=== PATIENT | male | born 1945 | race Hispanic/Latino ===

== ENCOUNTER 2018-05-07 06:27 | Observation (INO) | payer MEDICARE ==
[2018-04-30 10:01] LABS: BASOPHILS % 0.4 % (0.0-1.0); EOSINOPHILS # (AUTO) 0.1 (0.0-0.4); EOSINOPHILS % 1.8 % (0.0-6.0); LYMPHOCYTES % 29.2 % (18.0-39.1); MEAN CORPUSCULAR HEMOGLOBIN 31.3 pg (28-32); MEAN CORPUSCULAR HGB CONC 33.3 g/dL (31-35); MONOCYTES # (AUTO) 0.6 (0.2-0.8); MONOCYTES % 8.5 % (4.4-11.3); NEUTROPHILS # (AUTO) 3.9 (2.1-6.9); NEUTROPHILS % 58.9 % (38.7-80.0); PLATELET COUNT 152 x10e3/uL (140-360); RED BLOOD COUNT 4.15 x10e6/uL (4.3-5.7); RED CELL DISTRIBUTION WIDTH 13.2 % (11.7-14.4)
[2018-04-30 10:12] LABS: ANION GAP 14.3 mmol/L (8-16); BLOOD UREA NITROGEN 15 mg/dL (7-26); BUN/CREATININE RATIO 14 (6-25); CALCIUM 9.5 mg/dL (8.4-10.2); CARBON DIOXIDE 24 mmol/L (22-29); CHLORIDE 107 mmol/L (98-107); CREATININE, SERUM 1.06 mg/dL (0.72-1.25); EST GLOMERULAR FILTRATION RATE > 60 ML/MIN (60-); GLUCOSE 105 mg/dL (74-118); POTASSIUM 4.3 mmol/L (3.5-5.1); SODIUM 141 mmol/L (136-145)
--- NOTE | 2018-05-04 08:44 | Diagnostic Imaging Report ---
PROCEDURE: X-RAY CHEST, TWO VIEWS COMPARISON: None. INDICATIONS: PRE-OP FINDINGS: LUNGS: No consolidations or edema. PLEURA: No effusions or pneumothorax. HEART & MEDIASTINUM: The heart is within normal size-limits. Sternotomy wire sutures and mediastinal clips are noted. BONES & SOFT TISSUES: No acute findings. Extensive degenerative spurring of the spine. Clips in the right upper quadrant of the abdomen. CONCLUSION: No acute thoracic abnormality. Khai Landeros D.O. Dictated by: Khai Landeros D.O. on 05/04/2018 at 8:53 Electronically approved by: Khai Landeros D.O. on 05/04/2018 at 8:53
[2018-05-07] VITALS (27 sets, daily range): BP systolic 84–101; BP diastolic 49–67
[~2018-05-07] VITALS: Ht 170.2 cm; Wt 79.4 kg
[~2018-05-07 06:27] MED LIST: FLOMAX0.4 MG PO; METOPROLOL SUCC25 MG PO; PLAVIX75 MG PO; SIMVASTATIN40 MG PO; ZESTRIL20 MG PO
--- OUTSIDE RECORDS SUMMARY | 2018-05-07 06:29 | XMS REPORT ---
Author Author [facility] Address Unknown Phone Unavailable Care Team Providers Care Analytics Director Name Role Phone Bharti ENGLE Unavailable Unavailable Payers Payer Name Policy Type Policy Number Effective Date Expiration Date Problems This patient has no known problems. Allergies, Adverse Reactions, Alerts Allergy Name Allergy Type Status Severity Reaction(s) Onset Date Inactive Date Treating Clinician Comments No Known Allergies DA Active U 2013-08-20 00:00:00 Medications This patient has no known medications. Results Test Description Test Time Test Comments Text Results Atomic Results Result Comments CHEST 2 VIEWS 2018-05-04 08:53:00 [place] [address] Patient Name: KRAIG WALKER MR #: [id number] : 1945 Age/Sex: 72/M Req #: [id number] Adm Physician: Ordered by: TAVON ENGLE MD Report #: [id number] Location: OR Room/Bed: Procedure: [id number] DX/CHEST 2 VIEWS Exam Date: Exam Time: REPORT STATUS: Signed PROCEDURE: X-RAY CHEST, TWO VIEWS COMPARISON: None. INDICATIONS: PRE-OP FINDINGS: LUNGS: No consolidations or edema. PLEURA: No effusions or pneumothorax. HEART MEDIASTINUM: The heart is within normal size-limits. Sternotomy wire sutures and mediastinal clips are noted. BONES SOFT TISSUES: No acute findings. Extensive degenerative spurring of the spine. Clips in the right upper quadrant of the abdomen. CONCLUSION: No acute thoracic abnormality. Jas Landeros D.O. Dictated by: Jas Landeros D.O. on 05/04/2018 at 8:53 Electronically approved by: Jas Landeros D.O. on 05/04/2018 at 8:53 Dictated By: JAS LANDEROS DO 2 Transcribed By: CIARRA on 05/04/18852 COPY TO: TAVON ENGLE MD
[2018-05-07] MEDS ORDERED: CEFTRIAXONE SOD 1 GM VIAL ONE (07:20)
[2018-05-07] MEDS ORDERED: IOPAMIDOL 610MG/1ML 300 MG/ML VIAL IV ONE (08:12)
[2018-05-07] MEDS ORDERED: ATROPINE SULFATE 0.1 MG/ML 10ML SYR ONE (09:48)
--- NOTE | 2018-05-07 12:06 | Operative Report ---
DATE OF PROCEDURE: May 07, 2018 PREOPERATIVE DIAGNOSIS: Bladder outlet obstruction with recent urinary retention. POSTOPERATIVE DIAGNOSIS: Bladder outlet obstruction with recent urinary retention. OPERATIVE PROCEDURES PERFORMED 1. Cystoscopy. 2. Transurethral resection of the prostate. ANESTHESIA: General anesthesia. ESTIMATED BLOOD LOSS: 100 mL. INDICATIONS: Mr. Cecil Nicole is a 72-year-old gentleman with recent history of urinary retention who now presents with bladder outlet obstructive type symptoms. He now presents for definitive surgical management of this problem. PROCEDURE IN DETAIL: The patient was brought into the operating room and placed in supine position. After administration of general anesthesia, he was placed in the dorsal lithotomy position, prepped and draped in the usual sterile fashion. Cystourethroscopy was performed using a 21-Faroese cystoscope. Anterior and posterior urethra was noted to be normal. The prostate was moderate size, and it was noted to have trilobar hyperplasia. Entrance into the bladder was mildly difficult. Upon entrance into the bladder, there were grade-3 trabeculations noted with cellules and diverticula noted throughout. The ureteral orifices were in normal anatomical position and produced clear efflux. There was a moderate elevation of the median bar. The bladder was left full, and the cystoscope and sheath were removed. A 24-Faroese resectoscope sheath was then placed in a retrograde fashion, and the [employer] resectoscope was used to perform the procedure. Beginning at the 1 o'clock position and proceeding in a clockwise fashion down to the 6 o'clock position, all the adenomatous tissue between the bladder neck and the veru was resected down to the level of the surgical capsule. The surgical capsule was penetrated but not perforated on that side. A similar procedure was performed on the contralateral side in a counterclockwise fashion beginning at the 11 o'clock position and ending at the 6 o'clock position. Again, all the adenomatous tissue between the bladder neck and the veru was resected down to the surgical capsule. There was no gross penetration or perforation of the capsule on this side. Once adequate hemostasis was secured, the [employer] evacuator was used to remove all chips. These were sent to pathology for microscopic analysis. The bladder was then left full, and the resectoscope and sheath were removed. The patient was noted to have a brisk urinary flow with Crede. A 24-Faroese, 3-way catheter was placed and the balloon inflated with 45 mL of sterile water. Urinary efflux on continuous bladder irrigation was blood-tinged. The catheter was placed to gravity drainage, and he was returned to a supine position. Anesthesia was reversed, and he was transferred to a bed and taken to the postanesthesia care unit in good condition. Of note, the needle and instrument count was correct at the conclusion of the case. Job#: [id number]
[2018-05-07 14:34] LABS: HEMATOCRIT 28.9 % (38.2-49.6); HEMOGLOBIN 9.5 g/dL (14.0-18.0)
[2018-05-07 14:53] LABS: INR 1.13; PROTHROMBIN TIME 15.5 seconds (11.9-14.5)
[2018-05-07 14:54] LABS: PARTIAL THROMBOPLASTIN TIME 35.6 seconds (23.8-35.5)
[2018-05-07] MEDS ORDERED: SODIUM CHLORIDE 0.9% 1000ML 1,000 ML ONE (15:41)
[2018-05-07] MEDS ORDERED: SODIUM CHLORIDE 0.9% 250ML 250 ML IV ONE (15:45)
--- NOTE | 2018-05-07 16:18 | Diagnostic Imaging Report ---
EXAM: Limited pelvic Ultrasound INDICATION: ^Bleeding COMPARISON: None TECHNIQUE: Transverse and longitudinal images of the pelvis and bladder were obtained. FINDINGS: Carreno catheter within a decompressed bladder. No fluid collections in the pelvis. No hyperechoic areas within the collapsed bladder. IMPRESSION: No compressive findings to suggest fluid collections or bleeding in the pelvis on limited evaluation. CT abdomen and pelvis, can be more sensitive for its evaluation. Signed by: Dr. Anabel Núñez M.D. on 05/07/2018 4:14 PM
[2018-05-07] MEDS ORDERED: FENTANYL CITRATE/PF 100MCG/2 ML INJ ONE (17:20)
[2018-05-07] MEDS ORDERED: MIDAZOLAM HCL 2 MG/2 ML VIAL ONE (17:20)
[2018-05-07] MEDS ORDERED: ACETAMINOPHEN/CODEINE 300MG - 30MG TAB PO PRN (17:30)
[2018-05-07] MEDS ORDERED: DEXTROSE 5%/0.9% SOD CHL 1,000 ML IV ONE (18:00)
[2018-05-07] MEDS ORDERED: LIDOCAINE HCL 2% LOCAL INJ 5 ML SDV VIAL INJ ONE (19:36)
[2018-05-07] MEDS ORDERED: SEVOFLURANE INHAL SOLN 250 ML PEN BTL ONE (19:36)
[2018-05-07] MEDS ORDERED: PHENYLEPHRINE HCL 1% 10 MG/ML VIAL ONE (19:36)
[2018-05-07] MEDS ORDERED: VASOPRESSIN INJ 20 UNIT/ML VIAL ONE (19:36)
[2018-05-07] MEDS ORDERED: DEXAMETHASONE SOD PHOS INJ 4 MG/ML VIAL ONE (19:36)
[2018-05-07] MEDS ORDERED: EPHEDRINE SULFATE INJ 50 MG/10 ML SYR ONE (19:36)
[2018-05-07] MEDS ORDERED: ONDANSETRON HCL INJ 2 MG/ML VIAL ONE (19:36)
[2018-05-07] MEDS ORDERED: PROPOFOL IV EMULSION 10 MG/ML 20 ML VIAL ONE (19:36)
[2018-05-07] MEDS: SIMVASTATIN 40 MG TAB PO SCH (20:24)
[2018-05-07] MEDS: TRIMETHOPRIM/SULFAMETHOXAZOLE 160-800 MG TAB PO SCH (20:24)
[2018-05-08] VITALS (73 sets, daily range): BP systolic 61–119; BP diastolic 42–111
[2018-05-08 04:45] LABS: HEMATOCRIT 25.2 % (38.2-49.6); HEMOGLOBIN 8.7 g/dL (14.0-18.0)
[2018-05-08 04:59] LABS: ANION GAP 10.6 mmol/L (8-16); BLOOD UREA NITROGEN 21 mg/dL (7-26); BUN/CREATININE RATIO 23 (6-25); CARBON DIOXIDE 23 mmol/L (22-29); CHLORIDE 105 mmol/L (98-107); CREATININE, SERUM 0.93 mg/dL (0.72-1.25); EST GLOMERULAR FILTRATION RATE > 60 ML/MIN (60-); GLUCOSE 132 mg/dL (74-118); POTASSIUM 3.6 mmol/L (3.5-5.1); SODIUM 135 mmol/L (136-145)
[2018-05-08 05:08] LABS: CALCIUM 7.6 mg/dL (8.4-10.2)
[2018-05-08] MEDS ORDERED: DEXTROSE 5%/0.9% SOD CHL 1,000 ML IV SCH (06:00)
[2018-05-08] MEDS: METOPROLOL SUCCINATE 25 MG TAB XL PO SCH (09:00)
[2018-05-08] MEDS: LISINOPRIL 20 MG TAB PO SCH (09:00)
[2018-05-08] MEDS: TRIMETHOPRIM/SULFAMETHOXAZOLE 160-800 MG TAB PO SCH ×2 (09:55→22:00)
[2018-05-08] MEDS: TAMSULOSIN HCL 0.4 MG CAP PO SCH (09:55)
[2018-05-08] MEDS ORDERED: FUROSEMIDE INJ 10 MG/ML 2 ML VIAL IV ONE (12:45)
[2018-05-08 15:17] LABS: HEMATOCRIT 28.6 % (38.2-49.6)
[2018-05-08] MEDS: SIMVASTATIN 40 MG TAB PO SCH (22:00)
[2018-05-09] VITALS (12 sets, daily range): BP systolic 96–127; BP diastolic 60–76
[2018-05-09 08:11] LABS: HEMATOCRIT 23.4 % (38.2-49.6); HEMOGLOBIN 7.9 g/dL (14.0-18.0)
[2018-05-09 08:28] LABS: ANION GAP 8.3 mmol/L (8-16); BLOOD UREA NITROGEN 16 mg/dL (7-26); BUN/CREATININE RATIO 14 (6-25); CARBON DIOXIDE 26 mmol/L (22-29); CHLORIDE 109 mmol/L (98-107); CREATININE, SERUM 1.11 mg/dL (0.72-1.25); EST GLOMERULAR FILTRATION RATE > 60 ML/MIN (60-); GLUCOSE 98 mg/dL (74-118); POTASSIUM 3.3 mmol/L (3.5-5.1); SODIUM 140 mmol/L (136-145)
[2018-05-09] MEDS: TRIMETHOPRIM/SULFAMETHOXAZOLE 160-800 MG TAB PO SCH (08:55)
[2018-05-09] MEDS: LISINOPRIL 20 MG TAB PO SCH (08:55)
[2018-05-09] MEDS: TAMSULOSIN HCL 0.4 MG CAP PO SCH (08:55)
[2018-05-09] MEDS: METOPROLOL SUCCINATE 25 MG TAB XL PO SCH (08:56)
[2018-05-09] MEDS ORDERED: TYLENOL WITH C1 EACH PO (10:26)
[2018-05-09] MEDS ORDERED: BACTRIM DS TAB1 EACH PO (10:28)
== END 2018-05-09 11:25 | disposition home or self-care (01) ==
LOC: OR 06:27 → PACU V 09:38 → ICU 17:16
PROVIDERS: ADMIT Urology; ATTEND Urology
DX: C61 Malignant neoplasm of prostate (principal); R33.8 Other retention of urine; I10 Essential (primary) hypertension; Z86.73 Personal history of transient ischemic attack (TIA), and cerebral infarction without residual deficits; I25.2 Old myocardial infarction; Z95.1 Presence of aortocoronary bypass graft; I25.10 Atherosclerotic heart disease of native coronary artery without angina pectoris; N13.8 Other obstructive and reflux uropathy; Z01.810 Encounter for preprocedural cardiovascular examination; Z01.812 Encounter for preprocedural laboratory examination; Z01.811 Encounter for preprocedural respiratory examination
CPT/HCPCS: 36415 ×4; 52630; 71046; 76857; 80048 ×3; 85014 ×3; 85018 ×3; 85025; 85610; 85730; 86850; 86900; 86920; 88305; 96361; G0378 ×3; J0696; J1100; J1940; J2001; J2250; J2370; J2405; J2704; J7030; J7042 ×2; J7050